=== PATIENT | female | born 1955 | race Caucasian/White ===

== ENCOUNTER 2020-02-11 19:08 | Emergency (ER) | payer OTHER ==
[~2020-02-11] VITALS: Ht 152.4 cm; Wt 61.2 kg
[2020-02-11] MEDS ORDERED: BP MED (19:27)
[2020-02-11] MEDS ORDERED: CIPROFLOXIN HC2.5 M1 OPHTHALMIC (19:31)
[2020-02-11] MEDS ORDERED: KEFLEX500 M1 PO (19:31)
[2020-02-11 19:56] VITALS: BP 167/80
== END 2020-02-11 19:56 | disposition home or self-care (01) ==
LOC: M.ERS 19:08
DX: H00.012 Hordeolum externum right lower eyelid (principal); I10 Essential (primary) hypertension